=== PATIENT | female | born 1970 ===

== ENCOUNTER 2019-05-04 12:13 | Observation (INO) | payer SELFPAY ==
[2019-05-04 12:38] VITALS: BMI 27.0
[2019-05-04] MEDS ORDERED: Ondansetron ODT 4 MG TAB PO PRN (13:27)
[2019-05-04] MEDS ORDERED: Ondansetron PF 4 MG/2 ML Vial IVP PRN (13:27)
[2019-05-04] MEDS ORDERED: Acetaminophen 650 MG Suppository PR PRN (13:27)
[2019-05-04] MEDS ORDERED: Acetaminophen 325 MG TAB PO PRN (13:27)
[2019-05-04] MEDS ORDERED: Dextrose 50% Abboject 50 ML SYRINGE SLOW IVP PRN (13:34)
[2019-05-04] MEDS ORDERED: HumaLOG 300 UNITS/3 ML VIAL SC PRN ×2 (13:34)
[2019-05-04] MEDS ORDERED: Dextrose 5% in Water 1,000 ML IV PRN (13:34)
[2019-05-04] MEDS ORDERED: PROVENTIL INHALER 6.7 G (200 INHALATIONS) INH PRN (13:40)
[2019-05-04 14:08] LABS: Hemoglobin A1c 11.6 % (4.0-6.0)
[2019-05-04 14:12] LABS: Albumin 3.7 g/dL (3.5-5.0); Anion Gap 9 mmol/L (10-20); BUN (Urea Nitrogen) 10 mg/dL (7.0-18.7); BUN/Creatinine Ratio 12.66; Calc. Creatinine Clearance 98 mL/min (70-130); Calcium 8.4 mg/dL (7.8-10.44); Carbon Dioxide 27 mmol/L (22-29); Chloride 108 mmol/L (98-107); Estimated GFR-MDRD 78; Glucose 236 mg/dL (70-105); Magnesium 1.7 mg/dL (1.6-2.6); Sodium 140 mmol/L (136-145)
[2019-05-04 14:17] LABS: Lactic Acid 1.3 mmol/L (0.5-2.2)
[2019-05-04] MEDS ORDERED: Sodium Chloride 0.9% 1,000 ML IV SCH ×2 (14:30→21:15)
[2019-05-04 14:44] LABS: Pregnancy Test - Urine (BHCG) Negative (Negative); Pregu Control Background? CLEAR/WHITE (CLR/WHITE); Pregu Control Bar Appear? YES (CONTROL BAR); Specific Gravity 1.023 (1.002-1.036)
--- NOTE | 2019-05-04 15:07 | HP ---
PRIMARY CARE PHYSICIAN: None. TIME OF ADMISSION: 1300 hours. CHIEF COMPLAINT: Chest pain. HISTORY OF PRESENT ILLNESS: Ms. Bro is a 49-year-old woman who presents with complaints of suprapubic discomfort for the last 2 weeks that has progressively worsened. For the last 2 days, she has been experiencing a left-sided chest pain along with a suprapubic discomfort. The patient states the suprapubic pain as a constant, throbbing, which she rates a 4/10 in severity and at times, she gets a severe sharp stabbing pain and rates it a 9/10 in severity, lasting 30 minutes. At the same time the pain worsens, she experiences pain in the left side of her chest, which she rates a 4/10. Once the suprapubic discomfort is alleviated on its own, the chest pain resolves. The patient denies having any dysuria, hematuria, urinary frequency, or urgency. Today, she noted changes in the color of her urine, which appears dark and cloudy. She denies any associated shortness of breath with the chest pain. Denies any fevers, but has been experiencing chills intermittently. She has not sought medical attention until today when she presented to [facility]. The patient had an EKG done there, which showed normal sinus rhythm with a heart rate of 82. She had a troponin checked, which was negative. She had a chest x-ray done, which showed no acute abnormality. There was blunting of the right costophrenic angle, felt to be a chronic finding with pleural thickening rather than a small effusion. She was treated with aspirin. She had a urinalysis done, which was notable for brown turbid appearing urine with small amount of urine bilirubin, trace ketones, large blood, nitrite negative, large leukocytes, and 100 of protein. She was given morphine 4 mg for the pain in the suprapubic region and was started on Rocephin for UTI. She received 1 L of normal saline. The patient transferred here for further monitoring and workup. PAST MEDICAL HISTORY: 1. Diabetes mellitus, noncompliant. The patient does not follow up with any physician. 2. Coronary artery disease. 3. Hypertension. PAST SURGICAL HISTORY: Complete hysterectomy. SOCIAL HISTORY: The patient does smoke 7 to 8 cigarettes a day. Denies any alcohol use or illicit drug use. FAMILY HISTORY: Her mother was diagnosed with diabetes. ALLERGIES: NO KNOWN DRUG ALLERGIES. CURRENT MEDICATIONS: Albuterol sulfate. PHYSICAL EXAMINATION: GENERAL: The patient appears thin, well developed, resting comfortably on the bed and in no acute distress. VITAL SIGNS: Temperature 97.5, pulse 68, respirations 20, O2 saturation 100% on room air, blood pressure 121/70. HEENT: Normocephalic and atraumatic. Pupils are equal, round, and reactive to light. Sclerae are without icterus. Oropharynx is clear. NECK: Supple without lymphadenopathy. LUNGS: Clear to auscultation bilaterally without any wheezes, rales, or rhonchi. CARDIAC: Regular rate and rhythm. No reproducible chest pain with palpation. ABDOMEN: Soft and nondistended. Suprapubic discomfort with palpation. No renal angle tenderness. EXTREMITIES: No lower leg swelling or edema. NEUROLOGIC: Alert and oriented x3. No neuro deficits. SKIN: Normal. Warm and dry. LABORATORY DATA: White blood count , hemoglobin 13.7, hematocrit 41.6, platelets 278. LFTs unremarkable. Creatinine 0.7, BUN 12, potassium 4.0. IMAGING DATA: As mentioned above in HPI. IMPRESSION AND PLAN: Ms. Bro is a 49-year-old woman who is being admitted for management of the following; 1. Chest pain. The patient developed chest pain 2 days ago that occured simultaneously with severe suprapubic discomfort. Initial troponin negative and chest x-ray unremarkable. EKG negative. We will continue to trend troponins. The patient has diabetes and heart disease, also is a smoker and has never undergone cardiac workup. We will plan for stress test tomorrow. 2. Urinary tract infection. Urine cultures are pending. We will continue antibiotics. We will obtain a renal ultrasound given the very dark appearance in urine and blood noted on the urinalysis. The patient denies history of kidney stones, but has had UTIs in the past. We will also obtain a postvoid bladder scan to ensure she is not retaining urine. 3. Diabetes mellitus. Initiate insulin sliding scale and monitor blood glucose. The patient is not on any medications and does not follow with a primary care physician for this. We will obtain a hemoglobin A1c. 4. Gastrointestinal prophylaxis with famotidine. 5. Deep venous thrombosis prophylaxis with mechanical SCDs. The patient is ambulatory. 6. Code status is full. She is not able to indicate who her surrogate decision maker is at this present time. The patient's case discussed with attending who agrees with plan of care as described above. Job ID: [id number]
[2019-05-04 18:10] LABS: Bilirubin Negative (Negative); Blood, Urine 3+ (Negative); Clarity Extra Turbid (Clear); Glucose, Urine (Dipstick) >=1000 mg/dL (Negative); Leukocyte 500 Leu/uL (Negative); Nitrite Negative (Negative); Protein, Urine (Dipstick) 50 mg/dL (Neg-Trace); Squamous Epithelial 0-3 HPF (0-3); Urobilinogen Normal mg/dL (Less than 2); WBC/HPF Greater than 50 HPF (0-3); Yeast-Budding 4+ HPF (None Seen)
[2019-05-04 18:14] LABS: Bacteria/HPF 4+ HPF (None Seen)
--- NOTE | 2019-05-04 18:14 | ULT ---
US Renal Bilateral STANDARD History: Urinary retention Comparison: None. Findings: Real-time grayscale, color evaluation of the kidneys and urinary bladder was performed. Right kidney measures 10.1 x 5.4 x 6 cm and the left kidney measures 9.2 x 4.9 x 4.4 cm. No renal mas s, hydronephrosis, or abnormal calcifications. Prevoid urinary bladder volume is 561 mL. Impression: Large prevoid urinary bladder volume. No kidney abnormality.
[2019-05-04 18:15] LABS: Urine Culture Reflex Yes Yes
[2019-05-04] MEDS ORDERED: Sodium Chloride 0.9% 500 ML IV SCH (20:45)
[2019-05-04] MEDS ORDERED: Famotidine/PF 20 mg/2ml Vial SLOW IVP SCH (21:00)
[2019-05-04] MEDS ORDERED: cefTRIAXone\\ROCEPHIN 1 GM in Sodium Chloride 0.9% 100 ML IVPB SCH (21:15)
[2019-05-05] MEDS ORDERED: Sodium Chloride 0.9% 500 ML IVPB SCH (00:15)
[2019-05-05] MEDS: Sodium Chloride 0.9% 1,000 ML IV SCH ×2 (04:25→13:22)
[2019-05-05] MEDS ORDERED: Sodium Chloride 0.9% 500 ML IV SCH (04:30)
[2019-05-05 05:22] LABS: #Basophils 0.1 thou/uL (0.0-0.2); #Eosinphils 0.1 thou/uL (0.0-0.7); #Lymphocytes 2.6 thou/uL (1.20-3.40); #Monocytes 0.6 thou/uL (0.11-0.59); #Neutrophils 6.5 thou/uL (1.40-6.50); %Basophils 0.8 % (0.0-1.0); %Eosinophils 0.7 % (0.0-10.0); %Lymphocytes 26.6 % (21.0-51.0); %Monocytes 6.4 % (0.0-10.0); %Neutrophils 65.6 % (42.0-75.0); Hemoglobin 10.4 g/dL (12.0-16.0); Mean Corpuscular HGB CONC 34.5 g/dL (32.0-36.0); Mean Corpuscular Hemoglobin 31.4 pg (27.0-31.0); Mean Corpuscular Volume 90.9 fL (78.0-98.0); Platelet Count 194 thou/uL (130-400); RBC Distribution Width 10.5 % (11.5-14.5); White Blood Cell (WBC) Count 9.9 thou/uL (4.8-10.8)
[2019-05-05 05:45] LABS: Anion Gap 7 mmol/L (10-20); BUN (Urea Nitrogen) 11 mg/dL (7.0-18.7); Calc. Creatinine Clearance 102 mL/min (70-130); Calcium 7.6 mg/dL (7.8-10.44); Carbon Dioxide 24 mmol/L (22-29); Cardiac Risk 3.6 (Less than 4.5); Chloride 109 mmol/L (98-107); Cholesterol 108 mg/dl (< 200 Desired); Estimated GFR-MDRD 81; Glucose 186 mg/dL (70-105); HDL Cholesterol 30 mg/dL (>60 Neg Risk); LDL Cholesterol, Calculated 66 mg/dL; Sodium 136 mmol/L (136-145); Triglycerides 62 mg/dL (Less than 150)
[2019-05-05] MEDS ORDERED: cefTRIAXone\\ROCEPHIN 1 GM in Sodium Chloride 0.9% 100 ML IVPB SCH (10:00)
[2019-05-05] MEDS: cefTRIAXone\\ROCEPHIN 2 GM in Sodium Chloride 0.9% 100 ML IVPB SCH (10:25)
[2019-05-05] MEDS: Famotidine 20 MG TAB PO SCH ×2 (10:25→20:01)
--- NOTE | 2019-05-05 11:33 | NM ---
NM Cardiac Stress W EF WF History: Chest pain Comparison: None. Findings: Stress and rest performed after the intravenous ministration of 30.2 and 9.1 mCi technetium 99m sestamibi, respectively. No evidence for scar or ischemia. Normal wall motion. The calculated ejection fraction is 83%. Impression: Normal nuclear medicine cardiac stress test and ejection fraction.
--- NOTE | 2019-05-05 14:56 | PDOC.HOSPP ---
- Subjective Encounter Date: 05/05/19 Encounter Time: 14:50 Subjective: f/u CP r/o with negative COUNTER HAND and UTI on Rocephin/Levaquin. Still feels weak but no recurrent CP. Uncontrolled DM with A1C 11.6 on no home meds. - Objective Vital Signs & Weight: Vital Signs (12 hours) Temp Pulse Resp BP BP BP BP 05/05/19 11:04 98.6 F 70 16 88/52 L 05/05/19 07:30 99.0 F 73 16 106/54 L 05/05/19 06:05 73 98/52 L 05/05/19 05:18 90/44 L 86/40 L 05/05/19 04:57 69 86/49 L 05/05/19 04:04 99 F 75 18 79/45 L Pulse Ox 05/05/19 11:04 96 05/05/19 07:30 97 05/05/19 06:05 05/05/19 05:18 05/05/19 04:57 05/05/19 04:04 97 Weight Weight 157 lb 4.8 oz I&O: 05/04/19 05/05/19 05/06/19 06:59 06:59 06:59 Intake Total 3987 Output Total 1800 1175 Balance 2187 -1175 Result Diagrams: 05/05/19 05:03 05/05/19 05:03 Additional Labs: Accuchecks 05/05/19 05/04/19 05/04/19 10:30 20:44 16:59 POC Glucose 258 H 204 H 293 H Microbiology 05/04/19 18:15 Urine jimenez catheter Urine Culture - Preliminary 05/04/19 17:03 Venous blood - Right Hand Blood Culture - Preliminary Specimen has been received and culture in progress. No Growth to date. 05/04/19 16:58 Venous blood - Left Hand Blood Culture - Preliminary Specimen has been received and culture in progress. No Growth to date. Laboratory Tests 05/04/19 05/04/19 05/05/19 13:49 13:49 05:03 Hemoglobin A1c 11.6 H Triglycerides 62 Cholesterol 108 LDL Cholesterol, Calc 66 HDL Cholesterol 30 TSH 3rd Generation 1.3142 Radiology Reviewed by me: Yes (COUNTER HAND - negative) EKG Reviewed by me: Yes (Tele - SR) Hospitalist ROS - Medication Medications: Active Medications Generic Name Dose Route Start Last Admin Trade Name Kvngq PRN Reason Stop Dose Admin Acetaminophen 650 mg 05/04/19 13:27 05/04/19 16:17 Tylenol PO 650 mg Q4H PRN Administration Headache/Fever/Mild Pain (1-3) Famotidine 20 mg 05/05/19 09:00 05/05/19 10:25 Pepcid PO 20 mg BID CHENG Administration Ceftriaxone Sodium 2 gm/ 100 mls @ 200 mls/hr 05/05/19 10:00 05/05/19 10:25 Sodium Chloride IVPB 100 mls 1000 CHENG Administration Levofloxacin 500 mg/ Device 100 mls @ 100 mls/hr 05/04/19 22:00 05/04/19 23: 00 IVPB 100 mls 2200 CHENG Administration Sodium Chloride 1,000 mls @ 100 mls/hr 05/05/19 07:45 05/05/19 13:22 Normal Saline 0.9% IV 1,000 mls .Q10H CHENG Administration Insulin Human Lispro 0 units 05/04/19 13:34 05/04/19 17:33 Humalog SC 4 unit .MILD SLIDING SCALE PRN Administration Mild Correctional Scale - Exam General Appearance: NAD, awake alert Eye: PERRL, anicteric sclera ENT: normocephalic atraumatic, no oropharyngeal lesions Neck: supple, symmetric, no JVD, no thyromegaly, no lymphadenopathy Heart: RRR, no murmur, no gallops, no rubs, normal peripheral pulses Respiratory: CTAB, no wheezes, no rales, no ronchi, normal chest expansion Gastrointestinal: soft, non-tender, non-distended, normal bowel sounds Gastrointestinal - other findings: mild TTP in suprapubic region Extremities: no cyanosis, no clubbing, no edema Skin: normal turgor, no lesions Neurological: cranial nerve grossly intact, no new deficit Musculoskeletal: normal tone, normal strength Psychiatric: normal affect, A&O x 3 Hosp A/P (1) UTI (urinary tract infection) Status: Acute Plan: Continue Rocephin/Levaquin pending final Ucx results (2) Chest pain Code(s): R07.9 - CHEST PAIN, UNSPECIFIED Status: Acute Plan: COUNTER HAND negative, no reversible ischemia (3) DM (diabetes mellitus), type 2, uncontrolled Code(s): E11.65 - TYPE 2 DIABETES MELLITUS WITH HYPERGLYCEMIA Status: Chronic Plan: Uncontrolled, start Glipizide 5mg daily, Diabetic teaching, needs outpt follow up and teaching, intolerant to Metformin with GI complaints (4) Normocytic anemia Code(s): D64.9 - ANEMIA, UNSPECIFIED Status: Chronic Plan: Appears chronic, repeat CBC in am, no evidence of active blood loss - Plan continue antibiotics, social psychologist, out of bed/ambulate, DVT proph w/SCDs Stable currently Continue Rocephin/Levaquin Continue IVF's another 24h Await final Ucx results Start Glipizide 5mg daily DM teaching AM lab: CBC Likely home in am
[2019-05-05] MEDS ORDERED: glipiZIDE 5 MG TAB PO SCH (15:15)
[2019-05-05] MEDS ORDERED: Regadenoson 0.4 MG/5 ML SYRINGE ONE (16:08)
[2019-05-05] MEDS ORDERED: metFORMIN 500 MG TAB PO SCH (17:00)
[2019-05-06] MEDS: Sodium Chloride 0.9% 1,000 ML IV SCH (02:07)
[2019-05-06 06:02] LABS: Band 9 % (5-11); Eosinophils 2 % (0-10); Hemoglobin 10.4 g/dL (12.0-16.0); Lymphocytes 49 % (21-51); MDiff Complete? YES; Mean Corpuscular HGB CONC 34.2 g/dL (32.0-36.0); Mean Corpuscular Hemoglobin 31.2 pg (27.0-31.0); Mean Corpuscular Volume 91.3 fL (78.0-98.0); Mean Platelet Volume 8.2 fL (7.4-10.4); Monocytes 4 % (0-10); Neutrophil 36 % (42-75); Platelet Count 206 thou/uL (130-400); RBC Distribution Width 10.7 % (11.5-14.5); Red Blood Cell (RBC) Count 3.32 mill/uL (4.20-5.40); White Blood Cell (WBC) Count 7.6 thou/uL (4.8-10.8)
[2019-05-06] MEDS ORDERED: glipiZIDE 5 MG TAB PO SCH (07:30)
[2019-05-06] MEDS: Famotidine 20 MG TAB PO SCH (09:44)
[2019-05-06] MEDS: cefTRIAXone\\ROCEPHIN 2 GM in Sodium Chloride 0.9% 100 ML IVPB SCH (09:45)
[2019-05-06 11:54] VITALS: BP 112/57; TEMP 98.3
--- NOTE | 2019-05-06 21:15 | DIS ---
DATE OF ADMISSION: 05/04/2019 DATE OF DISCHARGE: 05/06/2019 REASON FOR HOSPITALIZATION: Urinary tract infection. PROCEDURES PERFORMED AND TREATMENTS RENDERED: The patient was admitted to medical unit with telemetry for maximum medical therapy. The patient with urinary tract infection was started on appropriate antibiotic therapy with good improvement of symptoms. The patient also with chest discomfort was recommended nuclear medicine stress test, which was performed on 05/05/2019-nuclear medicine stress test was found to be negative for reversible ischemia and interpreted as normal. Please see full report for details. The patient with resolution of urinary tract infection symptoms, was recommended safe for discharge home with close followup in the outpatient setting. The patient does have uncontrolled diabetes with hemoglobin A1c of 11.6. The patient does not take any medications and does not follow up with doctors. I had a long conversation with the patient about the serious nature of uncontrolled diabetes and I included that she is at risk for several complications of diabetes if she continues to not control her medical problems. I explicitly informed her that she is at risk for the following, though not limited to the following: She is at risk for diabetes-related blindness, diabetic foot wounds including requiring of amputations of digits or limbs, diabetes induced nephropathy resulting in renal failure and requiring hemodialysis, in addition to diabetic retinopathy and blindness. The patient acknowledges these risks and states that she will control her diabetes better, and she does not want to have the same complications and problems that both of her parents suffered from. On 05/06/2019, I spent extra time with the patient going over the necessity of taking medications and following up with primary care physician in the next 1 to 2 weeks. I prescribed for the patient a diabetic regimen including metformin, glipizide, atorvastatin, and lisinopril. I also prescribed the patient for antibiotics and antifungal therapy for urinary tract infection. I sent all these medications to her preferred pharmacy and she ensures me that she will be able to afford them and they are on the [employer] four dollar list. I asked the nursing staff to give the patient resources on a low-cost or no cost clinic, and the patient tells me that she will go to this clinic and followup with a primary care physician. CONDITION ON DISCHARGE: Stable. SPECIFIC INSTRUCTIONS FOR THE PATIENT/FAMILY: 1. The patient is recommended to follow up with primary care physician in the next 5 to 7 days. 2. The patient is recommended to take all medications as directed. 3. The patient is recommended to complete a full course of oral antibiotics and oral antifungals for urinary tract infection. 4. The patient is recommended to return to acute care hospital immediately if signs or symptoms return, worsen, or any other new symptoms occur. DISCHARGE MEDICATIONS: 1. Atorvastatin 10 mg one tablet p.o. at bedtime. 2. Glipizide 5 mg one tablet p.o. daily. 3. Lisinopril 2.5 mg one tablet p.o. daily. 4. Metformin extended release 500 mg one tablet p.o. q.a.m. with food. 5. Nitrofurantoin extended release 100 mg one tablet p.o. b.i.d. for 7 days, 14 tablets. 6. Diflucan 150 mg p.o. x1 dose. Greater than 40 minutes spent coordinating care and discharge process in addition to education for this patient. Job ID: [id number]
== END 2019-05-06 11:55 | disposition home or self-care (01) ==
LOC: 2SW 12:13 → INTOOBSV 12:13
PROVIDERS: ADMIT Internal Medicine; ATTEND Internal Medicine
DX: N39.0 Urinary tract infection, site not specified (principal); R07.9 Chest pain, unspecified; I25.10 Atherosclerotic heart disease of native coronary artery without angina pectoris; I10 Essential (primary) hypertension; F17.210 Nicotine dependence, cigarettes, uncomplicated; D64.9 Anemia, unspecified; E11.65 Type 2 diabetes mellitus with hyperglycemia; Z91.19 Patient's noncompliance with other medical treatment and regimen
CPT/HCPCS: 36415; 36416; 76770; 78452; 80048; 80061; 80069; 81001; 81025; 83036; 83605; 83735; 83880; 84145; 84443; 84484; 85007; 85025; 85027; 87040; 87086; 90471; 90732; 93017; 96361; 96365; 96366; 96367; 96375; 96376; A9500; G0009; G0378; J0696; J1956; J2785; J3490; S0028